=== PATIENT | male | born 1965 | race Caucasian/White ===

== ENCOUNTER 2019-05-06 05:14 | Inpatient (IN) ==
--- NOTE | 2019-04-12 14:42 | PAT Medication Instructions ---
Medication Instructions Date of Service April 12, 2019 Home Medications docusate sodium [Stool Softener] 50 mg PO QAM loratadine [Claritin] 10 mg PO QAM multivitamin 1 tab PO DAILY DO NOT take the morning of surgery docusate sodium [Stool Softener] 50 mg PO QAM loratadine [Claritin] 10 mg PO QAM multivitamin 1 tab PO DAILY Other Notes If you have any questions please call us at [phone] or [phone] or [phone] or [phone]
--- NOTE | 2019-04-13 14:35 | Anesthesiology Consultation ---
Date of Service April 13, 2019 Assessment & Plan (1) Encounter for pre-operative examination: Preop EKG done 04/13/19 still unconfirmed at time of review. Will need to review confirmed EKG AM DOS. Chart Review Chart Review: Acceptable Risk for Surgery and Patient seen in Pre Admission Testing Teaching & Discussion Pre-Anesthesia Teaching/Discussion Notes: Instructed NPO after midnight before surgery,except medications with 15 cc of water. Medication instructions provided according to the PAT guidelines. History Surgery Operation Date: 04/22/19 07:30 Proposed Procedures p Robotic Laparoscopic Assisted Radical Retropubic Prostatectomy, Possible Open, Possible Pelvic Lymph Node Dissection - Ajith Ziegler MD Height/Weight Height: 5 ft 11 in Weight: 80.8 kg Allergies Allergy/AdvReac Type Severity Reaction Status Date / Time Penicillins Allergy Intermediate Hives Verified 04/08/19 15:30 HAY FEVER Allergy Mild WATERY EYES Uncoded 04/08/19 15:30 Medications Home Medications Medication Instructions Recorded Confirmed Last Taken docusate sodium [Stool Softener] 50 mg PO QAM 04/08/19 04/08/19 Unknown loratadine [Claritin] 10 mg PO QAM 04/08/19 04/08/19 Unknown multivitamin 1 tab PO DAILY 04/08/19 04/08/19 Unknown Past Medical History Medical History Cancer PROSTATE CANCER Hypertension HX; PER PATIENT, HAS NEVER NEEDED MEDICATION TREATMENT Exercise / Class Metabolic Activity II 4-5 Yardwork/Stairs/Walk up hill Past Family History Family History Sister Family history of diabetes mellitus Mother Family hx of colon cancer Past Surgical History Surgical History History of cholecystectomy History of colonoscopy History of esophagogastroduodenoscopy (EGD) History of kidney surgery REPAIRED BLOOD FLOW (18 INCH STENT PLACED AND REMOVAL) 1999 History of tooth extraction Hx of prostate biopsy Hx of vasectomy Past Anesthesia History No Hx of Anesthesia Complications and No Family Hx of Anesthesia Complications History of PONV No Hx of PONV and No Hx of Motion Sickness Social History Smoking Status: Former smoker tobacco type: cigarettes and smokeless tobacco Do You Dip or Chew Tobacco: Yes (5 CANS/WEEK- ADVISED NOT TO CHEW AM DOS) Smoking End Date: QUIT 10+ YEARS AGO Hx Alcohol Use: No Hx Substance Use: No substance use type: does not use Review of Systems Patient denies chest pain, shortness of breath, dyspnea on exertion, cough, wheezing, palpitations. Physical Exam Vital Signs VITALS BP 106/71 P 70 TEMP 98.4 SP02 96%RA RESP 20 PHYSICAL Full neck and c-spine range of motion. Full TMJ range of motion. TMD 4 finger breaths Mallampati Score 2 Dentition: full dentures, partial upper Lungs: clear throughout to auscultation Cardiac: regular rate and rhythm, no murmurs noted Spine: normal Carotid arteries: negative bruit Extremities: no edema Trimmed grewal Testing Laboratory Results 04/13/19 15:02 04/13/19 15:02 Urine Color Dark Yellow 04/13/19 Unknown Urine Appearance Clear (Clear) 04/13/19 Unknown Urine pH 5.5 (4.5-7.5) 04/13/19 Unknown Ur Specific [place] 1.030 (1.000-1.030) 04/13/19 Unknown Urine Protein Negative (Negative) 04/13/19 Unknown Urine Glucose (UA) Negative (Negative) 04/13/19 Unknown Urine Ketones Trace (Negative) H 04/13/19 Unknown Urine Nitrite Negative (Negative) 04/13/19 Unknown Ur Leukocyte Esterase Negative (Negative) 04/13/19 Unknown Blood Type A Positive 04/13/19 15:02 Antibody Screen NEGATIVE 04/13/19 15:02 04/13/19 Unknown Urine Culture - Preliminary Urine,Clean Catch No growth - Less than 1,000 colonies/mL, Final report to follow. Electrocardiogram Date: 04/13/19 NSR at 71bpm. "Normal" EKG (unconfirmed report). Chest X-Ray Date: 04/13/19 Findings: + NAD
--- NOTE | 2019-04-13 15:33 | XRay Report ---
XR chest Pre-admission PA/Lat CLINICAL HISTORY: Preoperative evaluation. COMPARISON STUDY: No previous studies for comparison. FINDINGS: Lung volumes are normal. Lungs are clear. There is no pneumothorax or pleural effusion. Car diac size is normal. Mediastinal contours are normal. There is no evidence for pulmonary edema. IMPRESSION: No acute cardiopulmonary findings. Electronically signed by: Etienne Bhakta M.D. 04/13/2019 3:31 PM
[2019-04-13 15:36] LABS: Basophils # (auto) 0.06 K/uL (0-0.2); Basophils % (auto) 0.8 %; Eosinophils # (auto) 0.23 K/uL (0-0.5); Eosinophils % (auto) 3.1 %; Hematocrit (blood only) 42.9 % (42-52); Hemoglobin 14.7 g/dL (14.0-18.0); Lymphocytes % (auto) 20.4 %; Mean Corpuscular Hgb Conc 34.3 g/dL (32-36); Mean Corpuscular Volume 97.3 fL (80-100); Mean Platelet Volume 10.4 fL (7.4-10.4); Monocytes # (auto) 0.54 K/uL (0.11-0.59); Monocytes % (auto) 7.3 %; Neutrophils # (auto) 5.03 K/uL (1.4-6.5); Neutrophils % (auto) 68.4 %; Platelet Count 245 K/uL (130-400); RDW Standard Deviation 46.1 fL (36.4-46.3); Red Blood Count 4.41 M/uL (4.7-6.1); White Blood Count 7.36 K/uL (4.8-10.8)
[2019-04-13 15:45] LABS: Appearance Urine Clear (Clear); Bilirubin Urine Negative (Negative); Blood Urine Negative (Negative); Color Urine Dark Yellow; Glucose Urine UA Negative (Negative); Ketones Urine Trace (Negative); Leukocyte Esterase Urine Negative (Negative); Nitrite Urine Negative (Negative); Protein Urine Negative (Negative); Urobilinogen Urine Negative (Negative); pH Urine 5.5 (4.5-7.5)
[2019-04-13 15:46] LABS: Calcium 8.5 mg/dl (8.5-10.1); Creatinine Clr Calc Pharmacy 101.1 ml/min; Est GFR (African American) 112.3; Est GFR (Non-African American) 96.9; Potassium 3.9 mmol/L (3.5-5.1)
[~2019-05-06 05:14] MED LIST: ACETAMINOPHEN 1000 MG/100 ML IV IV ONE; HEPARIN SOD (PORCINE) 5,000 UNITS/ML VIAL SQ SCH; LR 15ML/HR IV SCH; VANCOMYCIN HCL 1,000 MG/270 ML BAG IV SCH
[2019-05-06] MEDS ORDERED: HEPARIN SOD 5,000 UNIT/0.5 ML VIAL SQ SCH (06:00)
[2019-05-06] MEDS ORDERED: ACETAMINOPHEN 1,000 MG/100 ML VIAL IV SCH (06:00)
[2019-05-06] MEDS ORDERED: VANCOMYCIN HCL 1,000 MG/270 ML BAG IV SCH (06:00)
[2019-05-06] MEDS ORDERED: LR 15ML/HR IV SCH ×2 (06:00)
[2019-05-06] MEDS ORDERED: BUPIVACAINE 0.5 % 5 MG/1 ML MPF 30ML VIAL ONE (06:54)
--- NOTE | 2019-05-06 07:10 | History & Physical Bridge Note ---
Date of Service May 06, 2019 History & Physical Bridge Note I have examined the patient, reviewed the History & Physical and in the interval since the performance of the History & Physical I have noted the following changes of clinical significance: no changes noted
[2019-05-06] MEDS ORDERED: fentaNYL citrate 100 MCG/2 ML VIAL ONE ×2 (07:11→10:58)
[2019-05-06] MEDS ORDERED: MIDAZOLAM HCL 1 MG/ML 2ML VIAL ONE (07:11)
[2019-05-06] MEDS ORDERED: KETAMINE HCL INJ 50 MG/ML 10 ML VIAL ONE (07:54)
[2019-05-06] MEDS ORDERED: HYDROmorphone INJ 2 MG/ML SYR/VIAL ONE (07:54)
[2019-05-06] MEDS ORDERED: CIPROFLOXACIN 400MG / 200ML D5W IV ONE (07:55)
[2019-05-06] MEDS ORDERED: CIPROFLOXACIN 400 MG/200 ML BAG IV STA (07:55)
[2019-05-06] MEDS ORDERED: PROPOFOL IV EMULSION 10 MG/ML 20 ML VIAL IV ONE (08:22)
[2019-05-06] MEDS ORDERED: ONDANSETRON INJ 2 MG/ML 2 ML VIAL ONE (08:22)
[2019-05-06] MEDS ORDERED: LIDOCAINE HCL 2% 2 ML VIAL/AMP(20MG/ML) INFIL ONE (08:22)
[2019-05-06] MEDS ORDERED: ROCURONIUM BROMIDE 10 MG/ML 5 ML VIAL ONE (08:22)
[2019-05-06] MEDS ORDERED: DEXAMETHASONE SOD INJ 4 MG/ML VIAL ONE (08:22)
[2019-05-06] MEDS ORDERED: ePHEDrine sulfate 50 MG/ML AMP IV PRN (08:54)
[2019-05-06] MEDS ORDERED: ATROPINE SULFATE 0.1 MG/ML 10ML SYR IV PRN (08:54)
[2019-05-06] MEDS ORDERED: PROMETHAZINE HCL 12.5 MG in SODIUM CHLORIDE 0.9% 50 ML IV PRN (08:54)
[2019-05-06] MEDS ORDERED: HYDROmorphone INJ 2 MG/ML SYR/VIAL IV PRN (08:54)
[2019-05-06] MEDS ORDERED: fentaNYL citrate 100 MCG/2 ML VIAL IV PRN (08:54)
[2019-05-06] MEDS ORDERED: ONDANSETRON INJ 2 MG/ML 2 ML VIAL IV PRN ×2 (08:54→12:55)
[2019-05-06] MEDS ORDERED: FLOSEAL HEMOSTATIC MATRIX 10ML TOP ONE (09:17)
[2019-05-06] MEDS ORDERED: GLYCOPYRROLATE 0.2 MG/ML VIAL ONE (11:28)
[2019-05-06] MEDS ORDERED: NEOSTIGMINE METHYLSULFATE 5 MG/5 ML SYR ONE (11:28)
--- NOTE | 2019-05-06 11:40 | Operative Report ---
Post Operative Report Pre & Post Diagnosis Operation Date: 05/06/19 07:30 Pre-Op Diagnosis: Prostate Cancer Post-Op Diagnosis: Prostate Cancer Procedure Operation Date: 05/06/19 07:30 Actual Procedures p Robotic Laparoscopic Assisted Radical Retropubic Prostatectomy, Bilateral Pelvic Lymph Node Dissection, Bladder Neck Reconstruction (Not Applicable) - Ajith Ziegler MD Surgeon Ajith Ziegler MD Straight Cutter Machine Lyndsey LAL Estimated Blood Loss 250 Findings Consistent with Post-Op Diagnosis Specimens Prostate + SV, L SV, R and L PLN, periprostatic fat Description of Procedure RALRP, BPLND, BN reconstruction I attest to the content of the Intraoperative Record and any orders documented therein. Any exceptions are noted below.
[2019-05-06 12:25] LABS: Basophils # (auto) 0.04 K/uL (0-0.2); Basophils % (auto) 0.3 %; Eosinophils # (auto) 0.01 K/uL (0-0.5); Eosinophils % (auto) 0.1 %; Hematocrit (blood only) 46.4 % (42-52); Hemoglobin 15.8 g/dL (14.0-18.0); Immature Granulocytes # (auto) 0.04 K/uL (0.00-0.02); Immature Granulocytes % (auto) 0.3 %; Lymphocytes # (auto) 0.51 K/uL (1.2-3.4); Lymphocytes % (auto) 3.5 %; Mean Corpuscular Volume 100.2 fL (80-100); Mean Platelet Volume 10.7 fL (7.4-10.4); Monocytes # (auto) 0.21 K/uL (0.11-0.59); Monocytes % (auto) 1.4 %; Neutrophils # (auto) 13.87 K/uL (1.4-6.5); Neutrophils % (auto) 94.4 %; Platelet Count 259 K/uL (130-400); RDW Standard Deviation 47.1 fL (36.4-46.3); Red Blood Count 4.63 M/uL (4.7-6.1); White Blood Count 14.68 K/uL (4.8-10.8)
[2019-05-06 12:28] LABS: Mean Corpuscular Hgb Conc 34.1 g/dL (32-36)
[2019-05-06 12:45] LABS: BUN Creatinine Ratio 14.4 (10-20); Calcium 8.4 mg/dl (8.5-10.1); Creatinine Clr Calc Pharmacy 89.1 ml/min; Est GFR (African American) 97.3; Est GFR (Non-African American) 83.9; Potassium 4.3 mmol/L (3.5-5.1)
[2019-05-06] MEDS ORDERED: ACETAMINOPHEN 1,000 MG/100 ML VIAL IV PRN (12:55)
[2019-05-06] MEDS ORDERED: OXYCODONE HCL IR 5 MG TAB (IMMEDIATE RELEASE) PO PRN (12:55)
--- NOTE | 2019-05-06 12:58 | Anesthesiology Progress Note ---
Date of Service May 06, 2019 Anesthesia Post Procedure Vital Signs Vital Signs: Temp Pulse Pulse Resp BP Pulse Ox 05/06/19 12:40 75 15 116/68 95 05/06/19 12:30 78 16 117/72 95 05/06/19 12:20 36.6 C 83 17 121/73 97 05/06/19 12:10 72 16 133/84 100 05/06/19 12:00 73 16 134/81 100 05/06/19 11:51 37.3 C 81 16 143/80 H 100 05/06/19 06:21 36.9 C 76 20 132/89 98 Pain Intensity Abdomen: Pain Intensity: 2 Transfer of Care Handoff Completed per policy Notes Mental Status: alert / awake / arousable and participated in evaluation Patient Amnestic to Procedure: Yes Nausea / Vomiting: adequately controlled Pain: adequately controlled Airway Patency, RR, SpO2: stable & adequate BP & HR: stable & adequate Hydration State: stable & adequate Anesthetic Complications: no major complications apparent and Pt Satisfied with anesthetic care
[2019-05-06] MEDS: FAMOTIDINE 20 MG in SYRINGE 3 ML IV SCH ×2 (13:42→20:52)
[2019-05-06] MEDS: LACTATED RINGER'S 1,000 ML IV SCH ×2 (13:43→22:42)
[2019-05-06 14:16] LABS: INR 1.1 (0.9-1.1); Prothrombin Time 10.9 Seconds (9.0-12.0)
--- NOTE | 2019-05-06 14:59 | Progress Note ---
Date of Service May 06, 2019 Subjective Patient seen in postop rounds. Comfortable, conversant, resting in bed, in room. NAD Good respiratory excursion. S1 S2 Soft, ND, inc c/d/i Labs as below. Urine bloody, draining, min DEE OP. Intraop findings reviewed, postop care noted. Patient vocalizes understanding of the treatment plan, in good spirits. Cipro for recent diverticulitis, care per routine. Laboratory Results - last 48 hr 05/06/19 05/06/19 05/06/19 12:06 12:06 13:50 WBC 14.68 H RBC 4.63 L Hgb 15.8 Hct 46.4 MCV 100.2 H MCH 34.1 H MCHC 34.1 RDW Std Deviation 47.1 H RDW Coeff of Jeffery 13.0 Plt Count 259 MPV 10.7 H Immature Gran % (Auto) 0.3 Neut % (Auto) 94.4 Lymph % (Auto) 3.5 [place] % (Auto) 1.4 Eos % (Auto) 0.1 Baso % (Auto) 0.3 Immature Gran # (Auto) 0.04 H Neut # (Auto) 13.87 H Lymph # (Auto) 0.51 L [place] # (Auto) 0.21 Eos # (Auto) 0.01 Baso # (Auto) 0.04 PT 10.9 INR 1.1 Sodium 141 Potassium 4.3 Chloride 107 Carbon Dioxide 26 Anion Gap 8.0 BUN 15 Creatinine 1.01 Est Cr Clr Drug Dosing 89.1 Est GFR ( Amer) 97.3 Est GFR (Non-Af Amer) 83.9 BUN/Creatinine Ratio 14.4 Glucose 133 H Calcium 8.4 L Results & Data Vital Signs (Past 12 Hours) Vital Signs Temp Pulse Pulse Resp BP Pulse Ox 05/06/19 14:05 69 17 121/80 97 05/06/19 13:26 74 15 124/80 94 05/06/19 13:00 37.2 C 77 18 122/78 97 05/06/19 12:40 75 15 116/68 95 05/06/19 12:30 78 16 117/72 95 05/06/19 12:20 36.6 C 83 17 121/73 97 05/06/19 12:10 72 16 133/84 100 05/06/19 12:00 73 16 134/81 100 05/06/19 11:51 37.3 C 81 16 143/80 H 100 05/06/19 06:21 36.9 C 76 20 132/89 98
[2019-05-06] MEDS: MoRPHine SULFATE 4 MG/ML 1 ML CARP\\VIAL IV PRN ×3 (16:06→23:42)
[2019-05-06] MEDS: OXYCODONE HCL IR 5 MG TAB (IMMEDIATE RELEASE) PO PRN ×2 (17:11→21:55)
[2019-05-06] MEDS: CIPROFLOXACIN 500 MG TAB PO SCH (20:47)
[2019-05-06] MEDS: DOCUSATE SODIUM 100 MG CAP PO SCH (20:47)
[2019-05-06] MEDS: HEPARIN SOD 5,000 UNIT/0.5 ML VIAL SQ SCH (20:51)
--- NOTE | 2019-05-06 20:57 | Operative Report ---
DATE OF OPERATION: 05/06/2019 DATE OF PROCEDURE: 05/06/2019 PREOPERATIVE DIAGNOSIS: Clinical T1c, [place] 3+4 adenocarcinoma of the prostate with a pretreatment PSA of 45. POSTOPERATIVE DIAGNOSES: Clinical T1c, [place] 3+4 adenocarcinoma of the prostate with a pretreatment PSA of 45, significant periprostatic and pelvic inflammation. PROCEDURE: Robot-assisted laparoscopic radical retropubic prostatectomy with bilateral pelvic lymph node dissection and bladder neck reconstruction. SURGEON: Ajith Ziegler MD DRIVE SHAFT AND STEERING POST REPAIRER: LUKASZ Cerda. Assistants present throughout the case for suction, retraction of tissues, port placement and abdominal access, patient positioning, instrument passage and general patient safety. ESTIMATED BLOOD LOSS: 250 mL. IV FLUIDS: 1600 mL of crystalloid. SPECIMENS SENT TO PATHOLOGY: Prostate plus right seminal vesicle, left seminal vesicle, right pelvic lymph nodes, left pelvic lymph nodes, periprostatic fat. DRAINS LEFT IN PLACE: Include a #10 DEE drain in the left lower quadrant and a 20-Syrian Jackson catheter per urethra with 15 mL of sterile water in the balloon. ANESTHESIA: General anesthesia with endotracheal intubation plus local at port sites. COMPLICATIONS: None. FINDINGS: Significant pelvic inflammation with indurated obturator lymph nodes on both sides, bladder neck reconstruction required due to intravesical extension of the prostate at the level of the bladder neck. Watertight anastomosis was noted after completion of case with excellent hemostasis. No evidence of injury to the intraabdominal structures or anatomy. BRIEF HISTORY: Mr. Swan is a pleasant 53-year-old male who has been referred for evaluation of a new diagnosis of prostate cancer, found after prostate biopsy for an elevated PSA of 45. He is noted to have high volume [place] 3 disease, 8 out of 10 cores, and [place] 4 adenocarcinoma at the left base of the prostate. After discussion of risks and benefits of various forms of intervention, he has decided upon a robotic prostatectomy to manage his disease. Please see H and P for further details. He is being admitted after his surgery was delayed by a couple of weeks due to a flare of diverticulitis. Intravenous vancomycin is provided for antibiotic coverage seeing a history of penicillin allergy and SCDs used for DVT prophylaxis as well as subcutaneous heparin preoperatively. Intravenous Tylenol is used for perioperative analgesia as well. DESCRIPTION OF PROCEDURE: The patient was properly identified and brought into the operative suite after identification of appropriate consent on the chart. General anesthesia with endotracheal intubation was initiated and patient was prepped and draped in the standard fashion for this procedure. time piece repairer-out procedure was followed. A transverse supraumbilical incision was made and a 12 mm visual obturator was used to enter the abdomen under direct visualization using a 0-degree laparoscope. Abdomen was insufflated to 15 mmHg and noted to be free of any injury. No significant anatomic variance were appreciated at this time. The ports were placed for a 4th arm robotic template including 2 left-sided 7 mm robotic ports, 1 right-sided 7 mm port and a 5 and 12 mm assistant professor of criminal justice port. The patient was placed in Trendelenburg and robot was brought in and docked. A 0 degree lens was used to drop the bladder down to the level of the pelvis. Sigmoid colonic adhesions were divided using cold scissors to allow for mobilization of the bladder and access to the pelvis. The prostate was defatted and this was sent as a separate pathologic specimen. Endopelvic fascia was entered sharply on both sides and dissected down to the level of the apex of the prostate. Puboprostatic ligaments were divided and the dorsal venous complex was skeletonized. This was controlled using an 0 Vicryl suture on a CT1 needle. An apical dissection was initiated at this time. A 30-degree down lens was placed and attention was turned to the bladder neck, which was placed on traction using the 4th arm. Dissection was carried down through the bladder neck tissue to the level of the prostate gland which was noted to have some significant intrusion into the bladder lumen. In addition, a copious amount of inflammation and oozing inflammatory vascular tissue was appreciated at the level of the bladder. Bladder was entered and the Jackson catheter was used to place anterior traction on the prostate gland. Kissing lateral lobes of the prostate intruding into the bladder lumen were appreciated. These were dissected free and posterior bladder neck was divided. Ureteral orifices were noted to be well clear of the plane of dissection. A rather patulous bladder neck, especially on the left hand side was appreciated due to the required plane of dissection and bladder neck reconstruction was felt to be likely required at the end of the case. Posterior bladder neck fibers were divided and again significant inflammation was encountered in the posterior plane. This was divided down to the midline until the vas deferens and seminal vesicles were encountered. At this point, the remainder of the procedure until the prostate was removed and encountered with significant inflammation and edema within the pelvis. This was felt to hopefully be more likely due to the patient's recent GI difficulties than the malignancy itself. Large seminal vesicles were encountered and dissected free in their entirety. Bovie cautery was used as necessary to control small vessels at this level. Cold scissors were used to drop the rectum in the midline up to the level of the apex of the prostate. Over the course of manipulation of the gland, the left seminal vesicle was torn free from the prostate gland and this was handed off to be sent as a separate specimen. Weck clips were used at the level of the inferior vesicle pedicles and the prostatic pedicles for control of vascular structures as necessary. After this was complete, cold scissors were used to dissect the prostate down to the level of the apex. A nerve sparing dissection was carried out on both sides up to the level of the apex. After this was complete, hot scissors were used to divide the dorsal venous complex. A well defined urethra was skeletonized and apical dissection of the prostate was completed. Rectourethralis fibers were divided as well as the urethra leaving an excellent urethral stump. Prostate was removed from the pelvis and placed within an EndoCatch bag in the abdomen for retrieval at the end of the case. Excellent hemostasis was appreciated within the confines of the pelvis. Rectum was insufflated using a rectal tube under saline irrigation and noted to be free of any injury. FloSeal tissue seal was placed for small venous oozing at the bed of the prostate gland and attention was then turned to the pelvic lymph node dissection. Using the confines of the pelvic sidewall, external iliac vessels and the obturator nerve, a pelvic lymph node dissection was carried out on both sides. Weck clips were used to control large lymphatics and vascular structures and Bovie cautery was used as necessary for hemostasis otherwise. No injury to the vascular structures of the nerve was appreciated on either side after completion of case. Unfortunately, the patient's nodes were noted to be relatively indurated. This was more prominently noted on the left hand side than on the right. In fact, the nose was sufficiently enlarged, but it did not allow for easy passage through the assistant professor of criminal justice port and required placement within a second EndoCatch bag for retrieval at the end of the case. After this was complete, excellent hemostasis was appreciated within the lymph node dissection fossa. FloSeal was also placed for additional hemostasis postoperatively. Attention was then turned to the bladder neck where a circumferential running anastomosis was performed using a double armed V-Loc suture. A Jackson catheter was visualized entering the bladder prior to completion of closure. Seeing the rather patulous bladder neck, a 20-Syrian Jackson catheter with 15 mL of sterile water within the balloon was used. On the left hand side where the defect was larger, a small lateral wing of tissue was left free and closed separately using a single armed V-Loc suture. After this was complete, the bladder was distended with greater than 100 mL of irrigant and noted to be free of any leaks. However, seeing the need for a bladder neck reconstruction, decision was made not to place a suprapubic tube, but simply leave the urethral Jackson for drainage. The fourth arm was removed and a #10 DEE drain was brought in and placed within the confines of the pelvis while avoiding placing it directly over the anastomosis. The robotic instruments were removed and robot was de-docked. Camera was brought in via the assistant professor of criminal justice 12 mm port and string to the EndoCatch bag was brought in through the supraumbilical port. Ports were removed and the supraumbilical port was enlarged sufficiently to allow for easy passage of the specimen bags. This was closed in a running fashion using a 0 Vicryl on a UR-5 needle. A 2-0 silk was used to secure the DEE drain in place. Skin was closed using 4-0 Monocryl and Dermabond skin sealant. Excess carbon dioxide gas was removed from the abdomen prior to completion of closure. A catheter was placed to gravity drainage and DEE to bulb suction. Anesthesia was reversed. The patient was transferred to recovery room in stable condition. FOLLOWUP CARE: The patient will be admitted to the floor for standard postoperative management. I attest to the content of the Intraoperative Record and any orders documented therein. Any exception s are noted below.
[2019-05-07] MEDS: OXYCODONE HCL IR 5 MG TAB (IMMEDIATE RELEASE) PO PRN ×2 (04:03→14:05)
[2019-05-07] MEDS: MoRPHine SULFATE 4 MG/ML 1 ML CARP\\VIAL IV PRN (05:17)
--- NOTE | 2019-05-07 08:00 | Anesthesiology Progress Note ---
Date of Service May 07, 2019 Anesthesia Post Procedure Vital Signs Vital Signs: Temp Pulse Pulse Resp BP Pulse Ox Pulse Ox 05/07/19 07:01 36.5 C 80 15 174/87 H 98 05/07/19 03:19 37.1 C 88 16 123/81 97 05/06/19 23:05 37.3 C 98 H 16 124/82 95 05/06/19 19:26 36.4 C L 89 16 129/90 96 05/06/19 19:00 96 05/06/19 16:01 36.5 C 89 16 129/84 93 05/06/19 15:09 36.7 C 66 16 126/82 98 05/06/19 14:05 69 17 121/80 97 05/06/19 13:26 74 15 124/80 94 05/06/19 13:00 37.2 C 77 18 122/78 97 05/06/19 12:40 75 15 116/68 95 05/06/19 12:30 78 16 117/72 95 05/06/19 12:20 36.6 C 83 17 121/73 97 05/06/19 12:10 72 16 133/84 100 05/06/19 12:00 73 16 134/81 100 05/06/19 11:51 37.3 C 81 16 143/80 H 100 Pain Intensity Abdomen: Pain Intensity: 8 Notes Mental Status: alert / awake / arousable and participated in evaluation Patient Amnestic to Procedure: Yes Nausea / Vomiting: adequately controlled Pain: adequately controlled Airway Patency, RR, SpO2: stable & adequate BP & HR: stable & adequate Hydration State: stable & adequate Anesthetic Complications: no major complications apparent and Pt Satisfied with anesthetic care
[2019-05-07 08:20] LABS: Basophils # (auto) 0.02 K/uL (0-0.2); Basophils % (auto) 0.2 %; Eosinophils # (auto) 0.01 K/uL (0-0.5); Eosinophils % (auto) 0.1 %; Hematocrit (blood only) 37.5 % (42-52); Hemoglobin 12.7 g/dL (14.0-18.0); Immature Granulocytes # (auto) 0.04 K/uL (0.00-0.02); Immature Granulocytes % (auto) 0.3 %; Lymphocytes # (auto) 0.67 K/uL (1.2-3.4); Lymphocytes % (auto) 5.5 %; Mean Corpuscular Hgb Conc 33.9 g/dL (32-36); Mean Corpuscular Volume 97.4 fL (80-100); Mean Platelet Volume 10.6 fL (7.4-10.4); Monocytes # (auto) 1.31 K/uL (0.11-0.59); Monocytes % (auto) 10.7 %; Neutrophils # (auto) 10.23 K/uL (1.4-6.5); Neutrophils % (auto) 83.2 %; Platelet Count 278 K/uL (130-400); RDW Standard Deviation 46.4 fL (36.4-46.3); Red Blood Count 3.85 M/uL (4.7-6.1); White Blood Count 12.28 K/uL (4.8-10.8)
--- NOTE | 2019-05-07 08:21 | Urology Progress Note ---
Date of Service May 07, 2019 Assessment & Plan (1) Prostate cancer: A/P 53 yo male with CAP POD#1 s/p RALRP, BPLND. Chemistry pending, CBC acceptable. Good UOP, doing well. Advance diet and activity. Dutta training. Postop care and expected course reviewed. Anticipate DC DEE and DC home this afternoon - [employer] will check on progress for DC order after lunch, DC instructions and Rx. Patient and vocalize good understanding of the treatment plan. Subjective 53 yo male POD#1 s/p RALRP and BPLND. He is resting in bed, was ambulatory in room this AM. His is present in room. Pain well controlled, some belching, no BM yet. His pain is overall controlled, became anxious at his rise in HR on monitor while ambulating and went back to bed. No other c/o, acceptable DEE output, good UOP, urine clear. Review of Systems Constitutional: no fever and no chills Eyes: no diplopia Ear, Nose, Mouth, Throat: no ear trauma Respiratory: no cough and no hemoptysis Cardiovascular: no chest pain Gastrointestinal: no nausea and no vomiting Genitourinary: + hematuria (improved) Musculoskeletal: no neck pain Integumentary: no acne and no boil Neurologic: no paralysis and no numbness Psychiatric: no hopelessness Endocrine: + fatigue Hematologic / Lymphatic: no lymphadenopathy Allergy / Immunological: no tongue swelling Physical Exam Constitutional: WD/WN, vitals as above Eyes: eyes not dysmorphic ENMT: Ears: no external ear abnormality Neck: trachea midline; no anterior neck swelling Respiratory: no respiratory distress and does not use accessory muscles Cardiovascular: Vessels: radial pulses present Gastrointestinal (Abdomen): Inspection/Auscultation: abdomen not distended Percussion/Palpation: abdomen soft; abdomen nontender inc c/d/i Musculoskeletal: Head/Neck/Chest: normocephalic and neck supple Skin: normal turgor Neurologic: CN's II-XI intact bilaterally and awake; not obtunded Psychiatric: Orientation: alert and oriented x 3 Genitourinary: dutta in place Lymphatic: no lymphadenopathy Results & Data Vital Signs (Past 12 Hours) Vital Signs Temp Pulse Resp BP Pulse Ox 05/07/19 07:01 36.5 C 80 15 174/87 H 98 05/07/19 03:19 37.1 C 88 16 123/81 97 05/06/19 23:05 37.3 C 98 H 16 124/82 95 Laboratory Results Laboratory Results - last 48 hr 05/06/19 05/06/19 05/06/19 12:06 12:06 13:50 WBC 14.68 H RBC 4.63 L Hgb 15.8 Hct 46.4 MCV 100.2 H MCH 34.1 H MCHC 34.1 RDW Std Deviation 47.1 H RDW Coeff of Jeffery 13.0 Plt Count 259 MPV 10.7 H Immature Gran % (Auto) 0.3 Neut % (Auto) 94.4 Lymph % (Auto) 3.5 [place] % (Auto) 1.4 Eos % (Auto) 0.1 Baso % (Auto) 0.3 Immature Gran # (Auto) 0.04 H Neut # (Auto) 13.87 H Lymph # (Auto) 0.51 L [place] # (Auto) 0.21 Eos # (Auto) 0.01 Baso # (Auto) 0.04 PT 10.9 INR 1.1 Sodium 141 Potassium 4.3 Chloride 107 Carbon Dioxide 26 Anion Gap 8.0 BUN 15 Creatinine 1.01 Est Cr Clr Drug Dosing 89.1 Est GFR ( Amer) 97.3 Est GFR (Non-Af Amer) 83.9 BUN/Creatinine Ratio 14.4 Glucose 133 H Calcium 8.4 L 05/07/19 07:15 WBC 12.28 H RBC 3.85 L Hgb 12.7 L D Hct 37.5 L MCV 97.4 MCH 33.0 MCHC 33.9 RDW Std Deviation 46.4 H RDW Coeff of Jeffery 13.0 Plt Count 278 MPV 10.6 H Immature Gran % (Auto) 0.3 Neut % (Auto) 83.2 Lymph % (Auto) 5.5 [place] % (Auto) 10.7 Eos % (Auto) 0.1 Baso % (Auto) 0.2 Immature Gran # (Auto) 0.04 H Neut # (Auto) 10.23 H Lymph # (Auto) 0.67 L [place] # (Auto) 1.31 H Eos # (Auto) 0.01 Baso # (Auto) 0.02 PT INR Sodium Potassium Chloride Carbon Dioxide Anion Gap BUN Creatinine Est Cr Clr Drug Dosing Est GFR ( Amer) Est GFR (Non-Af Amer) BUN/Creatinine Ratio Glucose Calcium
[2019-05-07 08:55] LABS: BUN Creatinine Ratio 17.6 (10-20); Calcium 8.1 mg/dl (8.5-10.1); Est GFR (African American) 50.8; Est GFR (Non-African American) 43.8; Potassium 4.5 mmol/L (3.5-5.1)
[2019-05-07] MEDS ORDERED: MULTIVITAMIN TAB PO SCH (09:00)
[2019-05-07] MEDS: CIPROFLOXACIN 500 MG TAB PO SCH (09:24)
[2019-05-07] MEDS: DOCUSATE SODIUM 100 MG CAP PO SCH (09:24)
[2019-05-07] MEDS: HEPARIN SOD 5,000 UNIT/0.5 ML VIAL SQ SCH (09:25)
[2019-05-07] MEDS: FAMOTIDINE 20 MG in SYRINGE 3 ML IV SCH (09:29)
[2019-05-07] MEDS: LACTATED RINGER'S 1,000 ML IV SCH (09:44)
[2019-05-07] MEDS ORDERED: FAMOTIDINE 20 MG TAB PO SCH (21:00)
--- NOTE | 2019-05-17 15:41 | Discharge Summary ---
Date of Service May 17, 2019 Admission HPI Per Admitting Provider 53-year-old male with an elevated PSA and prostate cancer on biopsy here today for robotic prostatectomy to manage his disease. Please see H&P for further details. Admission Exam Per Admitting Provider NAD S1 S2 Good respiratory excursion. Abd soft, NT, ND Principal Diagnosis Prostate cancer Discharge Exam Constitutional WD/WN, vitals as above Eyes eyes not dysmorphic ENMT Ears: no external ear abnormality Neck trachea midline; no anterior neck swelling Respiratory no respiratory distress and does not use accessory muscles Cardiovascular Vessels: radial pulses present Gastrointestinal (Abdomen) Inspection/Auscultation: abdomen not distended Percussion/Palpation: abdomen soft; abdomen nontender Musculoskeletal Head/Neck/Chest: normocephalic and neck supple Skin normal turgor Neurologic CN's II-XI intact bilaterally and awake; not obtunded Psychiatric Orientation: alert and oriented x 3 Lymphatic no lymphadenopathy Discharge Data Allergies Allergy/AdvReac Type Severity Reaction Status Date / Time Penicillins Allergy Intermediate Hives Verified 05/06/19 05:47 metronidazole [From Flagyl] AdvReac Intermediate Hives Verified 05/06/19 05:48 Procedures Performed Operation Date: 05/06/19 07:30 Actual Procedures p Robotic Laparoscopic Assisted Radical Retropubic Prostatectomy, Bilateral Pelvic Lymph Node Dissection(Not Applicable) - Ajith Ziegler MD Hospital Course (1) Prostate cancer: A/P 53 yo male with CAP POD#1 s/p RALRP, BPLND. Chemistry pending, CBC acceptable. Good UOP, doing well. Advance diet and activity. Jackson training. Postop care and expected course reviewed. Anticipate DC DEE and DC home this afternoon - CUSTODIAL ENGINEER will check on progress for DC order after lunch, DC instructions and Rx. Patient and vocalize good understanding of the treatment plan. Total Time Total Time Spent Total Time Spent (In Minutes): 10 min Total Time Includes: Examination of the Patient and Discharge Planning Discharge Plan Discharge Items Patient Disposition: Home - Self-Care Reason For Visit: Prostate Cancer Discharge Diagnosis: Prostate cancer Discharge Goals: Diagnostic testing and Therapeutic intervention Activity: Per 'Additional Instructions' section Lifting: No more than 10 pounds Bathing Comment: Shower tomorrow. Do not scrub/pick surgical glue. No soaking/tubs/pools. Sexual Activity: Wait until after follow-up appointment Exercise/Sports: None Exercise Comment: Walking and stairs in your home are OK. Driving/Machine Use Comment: Please do not drive while taking Narcotic pain medication. Non-emergency contact: Urologist Call non-emergency contact if: you have any medication questions, your pain is concerning for you, your temperature is above 101, your wound has increased redness, your wound has increased drainage and your wound pain has increased Follow-up/Referrals: Roseanna Anderson D.O. [Primary Care Provider] - Diet: Regular Addtl Provider Instructions: Please keep all follow up appointments at the Urology office as scheduled. Call office at [phone] if you have any questions or concerns. This is also the number that will connect you to Urologist acquisition marketing coordinator after hours. Jackson: please be careful with your catheter. Call office right away if not draining or catheter is tugged/displaced. Clean around catheter twice daily with mild soap and water. Antibiotic: will continue Cipro twice daily for 2 weeks due to diverticulitis and surgery. Take with food. Consider taking a probiotic supplement, found at your pharmacy, to replace the good bacteria in your gut. Bowels: we sent Rx for Colace for you to take twice daily for 2 weeks, then as needed for constipation. Pain: take Tylenol as needed per dosing instructions on bottle for mild pain. Take pain medication (Oxycodone) every 6 hours as needed for moderate/severe pain. Thanks for allowing us to participate in your care! -- Dr. Ziegler & Maribel Prescriptions: New oxycodone 5 mg tablet 5 mg PO Q6H PRN (Reason: pain) Qty: 14 RF: 0 docusate sodium [Colace] 100 mg capsule 100 mg PO BID Qty: 60 RF: 0 ciprofloxacin HCl [Cipro] 500 mg tablet 500 mg PO BID Qty: 28 RF: 0 Continued fexofenadine 60 mg tablet 60 mg PO DAILY RF: 0 multivitamin with minerals [Men's One Daily] tablet 2 tab PO TID RF: 0 multivitamin Tablet 1 tab PO DAILY RF: 0 loratadine [Claritin] 10 mg Tablet 10 mg PO QAM RF: 0 Discontinued aspirin 81 mg tablet 81 mg PO DAILY RF: 0 Colace Clear 50 mg capsule 50 mg PO DAILY RF: 0 Stool Softener 50 mg Capsule 50 mg PO QAM RF: 0 Stand-Alone Forms: My [facility]/Other Patient Handouts: Catheter Bag Urinary Empty Clean, Catheter Indwelling Urinary Dc, Leg Bag Care Dc Discharge Orders: Discharge Order (Routine); Ordered 05/07/19 Ordered By: Maribel Machado Admission Data Admit Date/Time: 05/06/19 11:47 Attending Provider: Ajith Ziegler I. Admit Provider: Ajith Ziegler I. Primary Care Provider: Roseanna Anderson Service: Surgical Services Other Interventions: Discharge Summary Assessment (RN) Last Done: 05/07/19 13:59 Pending Studies at Discharge: Yes Studies:: Pathology DC Date/Time DO NOT enter until pt leaves facility: 05/07/19 14:18
== END 2019-05-07 14:18 | disposition home or self-care (01) | DRG 707 ==
LOC: ASU 05:14 → 3W 11:47